=== PATIENT | female | born 1945 | race Caucasian/White ===

== ENCOUNTER 2017-03-18 08:46 | Emergency (ER) | payer OTHER ==
[~2017-03-18] VITALS: Ht 172.7 cm; Wt 74.7 kg
[~2017-03-18 08:46] MED LIST: ATIVAN0.5 MG PO; ATIVAN1 MG PO; AUGMENTIN875 MG PO; CELEXA10 MG PO; CENTRUM SILVER1 EACH PO; CERTAVITE SR W1 EACH PO; CIPRO250 M1 PO; CITRATE OF MAG296 ML PO; CLARITIN10 MG PO; Cipro PO; DEPAKOTE ER250 MG PO; DEPAKOTE ER500 MG PO; DEPAKOTE250 MG PO; DILAUDID2 MG PO; DUONEB 2.5-0.5 M3 ML IH; EFFEXOR XR150 MG PO; EFFEXOR XR75 MG PO; ENEMA133 M2 PR; EXELON3 MG PO; LEVAQUIN750 MG PO; LEXAPRO20 MG PO; LIDOCAINE20 MG/1 M5 PO; LISINOPRIL20 MG PO; LOPRESSOR50 MG PO; LORAZEPAM1 MG PO; LOTRISONE LOTIO30 ML TP; MILK OF MAGN PO; MIRTAZAPINE7.5 MG PO; NAMENDA10 MG PO; NEURONTIN300 MG PO; NITROFURANTOIN100 MG PO; PAXIL20 M1 PO; PRINIVIL20 MG PO; RIVASTIGMINE3 MG PO; SENOKOT S,PE1 TABLET PO; SEROQUEL12.5 MG PO; SEROQUEL50 MG PO; SUPPOSITORY1 EACH PR; TRAZODONE HCL50 MG PO; TYLENOL REGULA325 MG PO; VITAMIN D1000 INTUN PO; VITAMIN D2000 UNIT PO; WELLBUTRIN SR150 MG PO
[2017-03-18 09:23] LABS: MCH 32.5 PG (29.0-34.0); MCV 101.4 FL (83-99); MEAN PLAT.VOLUME 10.8 uM^3 (9.5-12.4); RBC DIS.WIDTH-CV 13.2 % (11.8-14.6); RBC DIS.WIDTH-SD 49.4 % (39-53); RED BLOOD COUNT 3.45 M/uL (3.80-5.20)
[2017-03-18 09:27] LABS: PLATELET COUNT 254 K/uL (156-360)
[2017-03-18 09:43] LABS: CHLORIDE 108 mEq/L (99-109); POTASSIUM 4.2 mEq/L (3.7-5.4); SODIUM 143 mEq/L (136-147)
[2017-03-18 09:44] LABS: ADD MIUA? NO; BILIRUBIN NEGATIVE; BLOOD NEGATIVE; COLOR YELLOW ((YELLOW)); GLUCOSE (STRIP) NEGATIVE; KETONES NEGATIVE; LEUKOCYTES NEGATIVE; NITRITE NEGATIVE; PROTEIN (STRIP) NEGATIVE; UCUL ADDED? NO; UROBILINOGEN 0.2 MG/DL (0.2-1.0)
[2017-03-18 09:45] LABS: GLUCOSE 129 mg/dL (70-99)
[2017-03-18 09:47] LABS: ANION GAP 12 MEQ/L (2-14)
[2017-03-18 09:48] LABS: TOTAL BILIRUBIN 0.4 mg/dL (0.0-1.0)
[2017-03-18 09:49] LABS: ALKALINE PHOSPHATASE 67 IU/L (3-129)
[2017-03-18 09:50] LABS: UREA NITROGEN (BUN) 27 mg/dL (9-23)
[2017-03-18 09:56] LABS: GFR ESTIMATE (CALCULATED) > 59 mL/min/
[2017-03-18 10:27] VITALS: BP 141/78
== END 2017-03-18 10:33 ==
LOC: EME 08:46
PROVIDERS: Nurse Practitioner Family
DX: D64.9 Anemia, unspecified (principal); G30.9 Alzheimer's disease, unspecified; F02.80 Dementia in other diseases classified elsewhere, unspecified severity, without behavioral disturbance, psychotic disturbance, mood disturbance, and anxiety; K21.9 Gastro-esophageal reflux disease without esophagitis; Z85.41 Personal history of malignant neoplasm of cervix uteri
CPT/HCPCS: 80053; 81003; 85027; 99281; 99284

== ENCOUNTER → 2017-05-27 | Emergency (ER) | payer OTHER ==
[~2017-05-27] VITALS: Ht 170.2 cm; Wt 63.7 kg
[2017-05-28 00:30] LABS: EOSINOPHIL COUNT 0.1 K/uL (0-0.3); HEMATOCRIT 31.9 % (36.0-46.0); IMMATURE GRANULOCYTE (%) 0.3 % (0.0-0.7); INSTRUMENT ABS NEUTROPHIL CT 4.6 K/uL; LYMPHOCYTE COUNT 1.7 K/uL (1.0-2.8); MCH 31.9 PG (29.0-34.0); MCHC 32.3 G/DL (30.0-36.0); MCV 98.8 FL (83-99); MEAN PLAT.VOLUME 10.4 uM^3 (9.5-12.4); MONOCYTE (%) 6.9 % (3-12); MONOCYTE COUNT 0.5 K/uL (0-0.8); NEUTROPHIL COUNT 4.6 K/uL (1.8-6.4); PLATELET COUNT 152 K/uL (156-360); RBC DIS.WIDTH-CV 12.6 % (11.8-14.6); RBC DIS.WIDTH-SD 45.6 % (39-53); RED BLOOD COUNT 3.23 M/uL (3.80-5.20); WHITE BLOOD COUNT 6.9 K/uL (4.1-10.2)
[2017-05-28 00:39] LABS: CHLORIDE 109 mEq/L (99-109); POTASSIUM 3.9 mEq/L (3.7-5.4); SODIUM 145 mEq/L (136-147)
[2017-05-28 00:41] LABS: GLUCOSE 86 mg/dL (70-99)
[2017-05-28 00:43] LABS: ANION GAP 8 MEQ/L (2-14)
[2017-05-28 00:45] LABS: GFR ESTIMATE (CALCULATED) 43 mL/min/
[2017-05-28 00:46] LABS: UREA NITROGEN (BUN) 32 mg/dL (9-23)
[2017-05-28 00:50] LABS: TROP-I INTERPRETATION NEGATIVE; TROPONIN-I < 0.01 ng/mL (0.0-0.30)
[2017-05-28 01:14] LABS: ADD MIUA? NO; BILIRUBIN NEGATIVE; BLOOD NEGATIVE; COLOR YELLOW ((YELLOW)); GLUCOSE (STRIP) NEGATIVE; KETONES 5; LEUKOCYTES NEGATIVE; NITRITE NEGATIVE; PROTEIN (STRIP) NEGATIVE; SPECIFIC GRAVITY 1.018 (1.000-1.030); UCUL ADDED? NO; UROBILINOGEN 0.2 MG/DL (0.2-1.0)
[2017-05-28 05:09] VITALS: BP 135/70
== END ==
LOC: EME → EDBD 23:42 → EDSEX 23:42
PROVIDERS: Emergency Medicine
PROC: 0HQ1XZZ Repair Face Skin, External Approach (ICD-10-PCS; principal; 2017-05-27)
DX: S01.81XA Laceration without foreign body of other part of head, initial encounter (principal); W18.30XA Fall on same level, unspecified, initial encounter; G30.9 Alzheimer's disease, unspecified; F02.81 Dementia in other diseases classified elsewhere, unspecified severity, with behavioral disturbance; K21.9 Gastro-esophageal reflux disease without esophagitis; F32.9 Major depressive disorder, single episode, unspecified; G43.909 Migraine, unspecified, not intractable, without status migrainosus; Z66 Do not resuscitate; Z85.41 Personal history of malignant neoplasm of cervix uteri
CPT/HCPCS: 71020; 72170; 80048; 81003; 84484; 85025; 93005; 99281; 99284; J1630; J2060

== ENCOUNTER 2017-07-30 08:26 | Emergency (ER) | payer OTHER ==
[~2017-07-30] VITALS: Ht 170.2 cm; Wt 65.7 kg
[2017-07-30 09:10] LABS: HEMATOCRIT 30.6 % (36.0-46.0); MCH 32.9 PG (29.0-34.0); MCHC 32.7 G/DL (30.0-36.0); MCV 100.7 FL (83-99); MEAN PLAT.VOLUME 10.5 uM^3 (9.5-12.4); PLATELET COUNT 165 K/uL (156-360); RBC DIS.WIDTH-CV 13.6 % (11.8-14.6); RBC DIS.WIDTH-SD 50.4 % (39-53); RED BLOOD COUNT 3.04 M/uL (3.80-5.20); WHITE BLOOD COUNT 9.9 K/uL (4.1-10.2)
[2017-07-30 09:22] LABS: CHLORIDE 107 mEq/L (99-109); POTASSIUM 4.4 mEq/L (3.7-5.4); SODIUM 139 mEq/L (136-147)
[2017-07-30 09:23] LABS: GLUCOSE 101 mg/dL (70-99)
[2017-07-30 09:25] LABS: ANION GAP 7 MEQ/L (2-14)
[2017-07-30 09:27] LABS: GFR ESTIMATE (CALCULATED) > 59 mL/min/
[2017-07-30 09:28] LABS: UREA NITROGEN (BUN) 21 mg/dL (9-23)
[2017-07-30 10:17] LABS: ADD MIUA? YES; BILIRUBIN NEGATIVE; BLOOD NEGATIVE; COLOR YELLOW ((YELLOW)); GLUCOSE (STRIP) NEGATIVE; KETONES NEGATIVE; LEUKOCYTES NEGATIVE; NITRITE POSITIVE; PROTEIN (STRIP) NEGATIVE; SPECIFIC GRAVITY 1.015 (1.000-1.030); UROBILINOGEN 0.2 MG/DL (0.2-1.0)
[2017-07-30 10:32] LABS: RED BLOOD CELLS NONE SEEN /HPF (0-5); WHITE BLOOD CELLS 0-5 /HPF (0-5)
[2017-07-30 10:33] LABS: AMORPHOUS URATES CRYSTALS 2+; BACTERIA 2+ /HPF; CRYSTALS PRESENT; EPITHELIAL CELLS NONE SEEN /HPF; MUCUS NONE SEEN /LPF; UCUL ADDED? YES
[2017-07-30 13:31] VITALS: BP 112/95
== END 2017-07-30 14:00 ==
LOC: EME 08:26
PROVIDERS: Emergency Medicine
DX: S00.12XA Contusion of left eyelid and periocular area, initial encounter (principal); S02.612A Fracture of condylar process of left mandible, initial encounter for closed fracture; M25.561 Pain in right knee; W19.XXXA Unspecified fall, initial encounter; Y92.129 Unspecified place in nursing home as the place of occurrence of the external cause; F02.80 Dementia in other diseases classified elsewhere, unspecified severity, without behavioral disturbance, psychotic disturbance, mood disturbance, and anxiety; G30.9 Alzheimer's disease, unspecified; M16.0 Bilateral primary osteoarthritis of hip; I10 Essential (primary) hypertension; Z85.41 Personal history of malignant neoplasm of cervix uteri; I44.0 Atrioventricular block, first degree
CPT/HCPCS: 70450; 70486; 73502; 80048; 81003; 85027; 87086; 93005; 99281; 99284

== ENCOUNTER 2017-12-18 20:06 | Emergency (ER) | payer OTHER ==
[~2017-12-18] VITALS: Ht 162.6 cm; Wt 67.1 kg
[2017-12-18 20:37] LABS: HEMATOCRIT 37.5 % (36.0-46.0); HEMOGLOBIN 12.4 G/DL (11.9-15.5); MCH 32.4 PG (29.0-34.0); MCHC 33.1 G/DL (30.0-36.0); MCV 97.9 FL (83-99); PLATELET COUNT 222 K/uL (156-360); RBC DIS.WIDTH-CV 13.8 % (11.8-14.6); RBC DIS.WIDTH-SD 49.6 % (39-53); RED BLOOD COUNT 3.83 M/uL (3.80-5.20); WHITE BLOOD COUNT 9.8 K/uL (4.1-10.2)
[2017-12-18 20:49] LABS: ALBUMIN 4.1 g/dL (3.2-4.8)
[2017-12-18 20:50] LABS: CHLORIDE 107 mEq/L (99-109); POTASSIUM 4.2 mEq/L (3.7-5.4); SODIUM 143 mEq/L (136-147)
[2017-12-18 20:52] LABS: GLUCOSE 110 mg/dL (70-99); TOTAL PROTEIN 6.7 g/dL (6.4-8.3)
[2017-12-18 20:54] LABS: TOTAL BILIRUBIN 0.3 mg/dL (0.0-1.0)
[2017-12-18 20:55] LABS: ALKALINE PHOSPHATASE 88 IU/L (3-129)
[2017-12-18 20:56] LABS: CREATININE 0.9 mg/dL (0.6-1.3); GFR ESTIMATE (CALCULATED) > 59 mL/min/
[2017-12-18 20:57] LABS: AST (GOT) 14 IU/L (2-34); UREA NITROGEN (BUN) 31 mg/dL (9-23)
[2017-12-18 20:58] LABS: ALT (GPT) 14 IU/L (3-49)
[2017-12-19 01:51] VITALS: BP 131/77
== END 2017-12-19 01:52 ==
LOC: EME → EDBD 20:06 → EME 12-19 01:52
PROVIDERS: Emergency Medicine Emergency Medical Services
DX: G30.9 Alzheimer's disease, unspecified (principal); F02.80 Dementia in other diseases classified elsewhere, unspecified severity, without behavioral disturbance, psychotic disturbance, mood disturbance, and anxiety; R40.0 Somnolence; F32.9 Major depressive disorder, single episode, unspecified; F41.9 Anxiety disorder, unspecified; K21.9 Gastro-esophageal reflux disease without esophagitis; Z85.41 Personal history of malignant neoplasm of cervix uteri; Z79.82 Long term (current) use of aspirin; Z88.6 Allergy status to analgesic agent; Z88.5 Allergy status to narcotic agent; Z88.2 Allergy status to sulfonamides
CPT/HCPCS: 70450; 80053; 85027; 99281; 99285